=== PATIENT | female | born 1975 | race Caucasian/White ===

== ENCOUNTER → 2017-05-16 19:04 | Outpatient (CLI) | payer MEDICAID | END | disposition home or self-care (01) | LOC: D.MAMMO 15:30 | DX: Z12.31 Encounter for screening mammogram for malignant neoplasm of breast (principal) ==

== ENCOUNTER 2020-12-28 14:30 | Outpatient (CLI) | payer OTHER | END 2020-12-28 23:59 | disposition home or self-care (01) | LOC: D.MAMMO 14:30 | PROVIDERS: ATTEND Nurse Practitioner Women's Health | DX: Z12.31 Encounter for screening mammogram for malignant neoplasm of breast (principal) ==